=== PATIENT | male | born 2000 | race Hispanic/Latino ===

== ENCOUNTER 2019-09-08 20:37 | Emergency (ER) | payer OTHER, MEDICAID, SELFPAY ==
[2019-09-08 20:48] VITALS: PULSE 118; RESP 26; TEMP 39.5; O2SAT 98; BMI 29.1
[2019-09-08 21:12] VITALS: TEMP 39.5
[2019-09-08] MEDS: ACETAMINOPHEN 325 MG TABLET 650 MG PO (21:12)
--- NOTE | 2019-09-08 21:16 | ED.FEVER ---
HPI - Fever General Chief Complaint: Fever Stated Complaint: Fever, Headache, Nausea Time Seen by Provider: 09/08/19 20:59 Source: patient Mode of arrival: Ambulatory Limitations: no limitations History of Present Illness HPI Narrative: The patient reports fever and headache, onset yesterday. With the symptoms he denies sore throat or sinus pressure. He does have a mild, nonproductive cough. He complains of no abdominal pain. He has have frequent emesis, for about 6 months. Emesis is not increased with the symptoms that started last night. There is a colleague that he works with who was recently diagnosed with influenza, with similar symptoms. He has no chronic respiratory issues, no asthma or allergies. He does not smoke tobacco, he does smoke marijuana. Discussing the emesis, he says he does not smoke that much marijuana. He denies ear discomfort, sinus pressure, or sore throat. He has no difficulty swelling. He denies difficulty breathing with the cough. He denies abdominal pain. Related Data Previous Rx's Medication Instructions Recorded ondansetron 4 mg PO Q4H PRN #10 tab 09/08/19 Allergies Allergy/AdvReac Type Severity Reaction Status Date / Time No Known Drug Allergies Allergy Verified 09/08/19 20:53 Review of Systems Review of Systems ROS Unobtainable: All systems reviewed & are unremarkable except as noted in HPI and below Constitutional Constitutional: Denies chills, Reports fever(s), Reports headache(s), Denies lethargy and Denies weakness Eyes Eyes: Denies change in vision, Denies eye discharge and Denies irritation ENT Ears, Nose, Mouth, and Throat: Denies change in voice, Denies otalgia, Reports headache(s), Denies neck pain and Denies sore throat Cardiovascular Cardiovascular: Denies chest pain, Denies palpitations and Denies dyspnea Respiratory Respiratory: Reports as per HPI, Reports cough, Denies dyspnea and Denies wheezing Gastrointestinal Gastrointestinal: Reports as per HPI, Denies abdominal pain and Reports vomiting Musculoskeletal Musculoskeletal: Denies back pain and Denies neck pain Integumentary/Breasts Skin/Breast: Denies pruritus, Denies erythema, Denies rash and Denies wounds Neurologic Neurologic: Reports headache(s) and Denies weakness Endocrine Endocrine: Denies palpitations Allergic/Immunologic Allergic/Immunologic: Denies wheezing Patient History Surgical History (Updated 09/08/19 @ 21:38 by Vinicio Burgess MD) No significant past surgical history (Acute) Social History Smoking Status: Never smoker Smoking Status: Never smoker alcohol intake frequency: 0-2 drinks per day Substance Use Type: marijuana Exam Initial Vital Signs Initial Vital Signs: Vital Signs Temperature 103.1 F H 09/08/19 20:48 Pulse Rate 118 H 09/08/19 20:48 Respiratory Rate 26 H 09/08/19 20:48 Pulse Oximetry 98 09/08/19 20:48 Const General: cooperative and well developed Nutritional Appearance: well nourished HENMT Head: normocephalic and atraumatic Ears: external ears normal and TM's normal bilaterally Nose: external nose normal and No nasal discharge Face and sinus: sinuses nontender, face symmetric and No dry mucous membranes Mouth: oral mucosae normal and moist mucous membranes Teeth and gingiva: dentition normal Throat: posterior oropharynx normal Eyes General: appearance normal, both eyes and all related structures Eyelids: eyelids normal Conjunctivae: conjunctivae normal Sclera: sclerae normal Pupils: PERRL EOM: EOM intact bilaterally Neck Neck: normal visual inspection, no meningeal signs, trachea midline and No lymphadenopathy Chest Chest: normal inspection of the chest Resp Effort & Inspection: normal respiratory effort, able to speak in complete sentences and no respiratory distress Auscultation: clear to auscultation bilaterally, no rales, no rhonchi and no wheezes Cardio Rate: regular rate Rhythm: regular rhythm Heart Sounds: no click, no gallops, no murmurs and no rubs Pulses: normal peripheral pulses GI Inspection: non-distended Palpation: soft, no hepatosplenomegaly, No guarding and No tender Auscultation: normal bowel sounds Back/Spine/Pelvis Back: No CVA tenderness Skin General: no rashes or lesions noted, No jaundice and No petechiae Neuro General: alert, oriented x3, gait normal and no focal motor deficits Speech: speech normal Course Course Course Narrative: The patient's influenza. He is discharged home with recommendation ibuprofen for headache and pain, Zofran for nausea. I recommend he not smoke marijuana to see if that improves the nausea. He should return to the ER if his situation worsens. Orders Ordered: ED Orders 09/08/19 20:54 Flu test [Influenza A & B (PCR)] Stat Discontinued Medications Acetaminophen (Tylenol) 650 mg PO NOW ONE Stop: 09/08/19 21:08 Last Admin: 09/08/19 21:12 Dose: 650 mg Documented by: KIMBRELY Vital Signs Vital signs: Vital Signs - 8 hr 09/08/19 20:48 09/08/19 21:12 Temperature 103.1 F H 103.1 F H Pulse Rate 118 H Respiratory Rate 26 H Pulse Oximetry 98 MDM - Fever Lab Data Labs: Lab Results 09/08/19 Range/Units 20:54 Influenza A (RT-PCR) Flu a positive H (NEGATIVE) Influenza B (RT-PCR) Flu b negative (NEGATIVE) Point of Care Testing Rapid Strep A Negative Discharge Plan Departure Patient Disposition: Home Clinical Impression: Influenza A Instructions: DI for Influenza -- Adult Activity Restrictions/Additional Instructions: Advil 3 tablets every 6 hours as needed for pain or fever. Zofran every 4 hours for nausea. Be sure you are drinking plenty of fluids and remain well hydrated. Return the ER as necessary. Prescriptions: New ondansetron 4 mg tablet,disintegrating 4 mg PO Q4H PRN (Reason: nausea and vomiting) Qty: 10 RF: 0 Stand Alone Forms: Work Release Note
[2019-09-08 21:25] LABS: Influenza A - CEPHEID Flu A POSITIVE (NEGATIVE); Influenza B - CEPHEID Flu B NEGATIVE (NEGATIVE)
[2019-09-08] MEDS: ONDANSETRON 4 MG ODT PREPACK 1 BOTTLE MISC (21:37)
[2019-09-08 21:40] VITALS: TEMP 39.2
[2019-09-08 21:44] VITALS: BP 126/76; PULSE 107; RESP 18; TEMP 39.2; O2SAT 97
== END 2019-09-08 21:44 | disposition home or self-care (01) ==
PROVIDERS: Emergency Provider Emergency Medicine
DX: J10.1 Influenza due to other identified influenza virus with other respiratory manifestations (principal)
CPT/HCPCS: 87502; 87880; 99283

== ENCOUNTER 2021-06-27 08:54 | Emergency (ER) | payer OTHER, MEDICAID, SELFPAY ==
[2021-06-27 09:00] VITALS: BP 127/66; PULSE 73; RESP 18; TEMP 36; O2SAT 98; BMI 27.8
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
[2021-06-27] MEDS: diazePAM 5 MG TABLET PO (11:22)
[2021-06-27] MEDS: KETOROLAC 30 MG/ML VIAL IM (11:22)
== END 2021-06-27 11:26 | disposition home or self-care (01) ==
PROVIDERS: Emergency Provider Emergency Medicine
DX: M54.50 Low back pain, unspecified (principal); M54.6 Pain in thoracic spine
CPT/HCPCS: 96372; 99283; J1885

== ENCOUNTER 2023-07-16 10:33 | Emergency (ER) | payer SELFPAY ==
[2023-07-16 10:53] VITALS: BP 107/67; PULSE 90; RESP 14; TEMP 36.5; O2SAT 97; BMI 27.4
--- NOTE | 2023-07-16 11:29 | ED_ITS ---
HPI - Skin/Abscess/Foreign Bdy <VIKKI Watkins - Last Filed: 07/16/23 11:38> General Chief complaint: Skin/Abscess/Foreign Body Stated complaint: sores on feet and hands Time Seen by Provider: 07/16/23 11:08 Source: patient Mode of arrival: Ambulatory Limitations: no limitations History of Present Illness HPI narrative: 22-year-old male, daily smoker, presents to the emergency department with complaints of nonhealing sores on his right foot dorsum. Patient believes he cut his foot while wearing sandals and appears to be getting worse. Daily cleaning has included isopropyl alcohol and antibiotic ointment. Related Data Previous Rx's Medication Instructions Recorded ondansetron 4 mg disintegrating 4 mg PO Q4H PRN nausea and 09/08/19 tablet vomiting #10 tabs diazepam 10 mg tablet (Valium) 10 mg PO TID PRN muscle spasm #10 06/27/21 tabs sulfamethoxazole 400 1 tab PO BID Cellulitis 10 days 07/16/23 mg-trimethoprim 80 mg tablet #20 tabs (Bactrim) Allergies Allergy/AdvReac Type Severity Reaction Status Date / Time No Known Drug Allergies Allergy Verified 07/16/23 10:53 Review of Systems <VIKKI Watkins - Last Filed: 07/16/23 11:38> Review of Systems Narrative: Narrative: See HPI. GENERAL: Denies chills, fatigue, fever, sweats. HEENT: Denies sinus pain, ear pain, sore throat, difficulty swallowing, dizziness. RESPIRATORY: Denies dyspnea, cough, wheezing, sputum. CARDIOVASCULAR: Denies chest pain, palpitations, edema. GASTROINTESTINAL: Denies nausea, vomiting, abdominal pain, diarrhea, constipation. : Denies dysuria, frequency, incontinence, hematuria, urinary retention, flank pain. MSK: Denies weakness, joint pain, or bony pain. SKIN: Denies rash, or pruritis. Endorses lesions on right foot. NEUROLOGIC: Denies weakness, dizziness, headache, numbness, confusion. Patient History <VIKKI Watkins - Last Filed: 07/16/23 11:38> Surgical History No significant past surgical history Social History Smoking Status: Current every day smoker Smoking Status: Current every day smoker alcohol intake frequency: holidays/special occasions only Substance Use Type: does not use and marijuana Exam <VIKKI Watkins - Last Filed: 07/16/23 11:38> Narrative Exam Narrative: Exam Narrative: GENERAL: This is a well-nourished, well-developed patient, in no acute distress HEAD: Atraumatic. Normocephalic. ENT: Nose without bleeding, purulent drainage. Airway patent. RESPIRATORY: Respiratory rate and effort are normal. MSK: Moves all extremities. Normal range of motion, no clubbing or edema. Neurovascularly intact. NEURO: A&O x 3. SKIN: Warm, dry, no rashes noted. Three nonhealing lesions on right foot dorsum. Moderate redness and warmth with no fluctuance, drainage or red streaking noted. Initial Vital Signs Initial Vital Signs: Vital Signs Temperature 97.7 F 07/16/23 10:53 Pulse Rate 90 07/16/23 10:53 Respiratory Rate 14 07/16/23 10:53 Blood Pressure 107/67 07/16/23 10:53 Pulse Oximetry 97 07/16/23 10:53 Oxygen Delivery Method Room Air 07/16/23 10:53 Reviewed <Ramsey Machado MD - Last Filed: 07/17/23 18:18> Initial Vital Signs Initial Vital Signs: Vital Signs Temperature 97.7 F 07/16/23 10:53 Pulse Rate 90 07/16/23 10:53 Respiratory Rate 14 07/16/23 10:53 Blood Pressure 107/67 07/16/23 10:53 Pulse Oximetry 97 07/16/23 10:53 Oxygen Delivery Method Room Air 07/16/23 10:53 Course <VIKKI Watkins - Last Filed: 07/16/23 11:38> Vital Signs Vital signs: Vital Signs - 8 hr 07/16/23 10:53 Temperature 97.7 F Pulse Rate 90 Respiratory Rate 14 Blood Pressure 107/67 Pulse Oximetry 97 Oxygen Delivery Method Room Air <Ramsey Machado MD - Last Filed: 07/17/23 18:18> Vital Signs Vital signs: Vital Signs - 8 hr 07/16/23 10:53 Temperature 97.7 F Pulse Rate 90 Respiratory Rate 14 Blood Pressure 107/67 Pulse Oximetry 97 Oxygen Delivery Method Room Air MDM - Skin/Abscess/Foreign Bdy <VIKKI Watkins - Last Filed: 07/16/23 11:38> Differential Diagnosis Differential diagnosis: Likely abscess of skin or subcutaneous tissue and cellulitis [facility] Narrative Medical decision making narrative: 22-year-old male with lesions on right foot. Assessment was consistent with early cellulitis with concerns over possible staph infection. No drainage to culture. Will treat with Bactrim. Strict instructions to follow up in walk-in clinic if symptoms are not improving. Discussed plan of care and return precautions with patient, who verbalized understanding and was agreeable with course of action. <Ramsey Machado MD - Last Filed: 07/17/23 18:18> [facility] Narrative Medical decision making narrative: 22-year-old male with lesions on right foot. Assessment was consistent with early cellulitis with concerns over possible staph infection. No drainage to culture. Will treat with Bactrim. Strict instructions to follow up in walk-in clinic if symptoms are not improving. Discussed plan of care and return precautions with patient, who verbalized understanding and was agreeable with course of action. I was immediately available in the department for consultation. Documentation nunez s been reviewed. I agree with assessment and plan. Discharge Plan Departure Patient Disposition: Home Clinical Impression: Cellulitis Qualifiers: Site of cellulitis: extremity Site of cellulitis of extremity: lower extremity Laterality: right Qualified Code(s): L03.115 - Cellulitis of right lower limb Instructions: DI for Cellulitis -- Adult Activity Restrictions/Additional Instructions: *You have been diagnosed with cellulitis of your right foot. This may potentially be a staph infection and will therefore treat with antibiotics. As we discussed, cleaned the site with warm soap and water and dress daily with antibiotic ointment. If symptoms are not improving by the end of the week, please go to the walk-in clinic for re-evaluation. *What to do: *Please continue to take your regular medications as directed. [x ] New medication prescriptions sent to your pharmacy: [[facility] ] [ ] New medication written as a paper prescription [ ] No new medications given *Please follow up with your primary care provider in 2-3 days, call for an appointment. Let them know you were seen in the Emergency Department and that we ask that you be seen in follow up. We will electronically transmit a record of today's note if your PCP is in our system *If you do not have a primary care provider please contact the [facility] Resource line at [phone]. They will ask some questions about your medical history and help get you set up with a doctor in the community. ? Return to ER if you should have any new, worsening or concerning symptoms, such as worsening pain, severe headache, confusion, chest pain, difficulty breathing, fever greater than 101 F, shaking chills, persistent vomiting to the point that you cannot drink fluids, or other new or worsening symptoms. Prescriptions: New sulfamethoxazole-trimethoprim [Bactrim] 400-80 mg tablet 1 tab PO BID 10 Days Qty: 20 0RF No Action diazepam [Valium] 10 mg tablet 10 mg PO TID PRN (Reason: muscle spasm) Qty: 10 0RF ondansetron 4 mg tablet,disintegrating 4 mg PO Q4H PRN (Reason: nausea and vomiting) Qty: 10 0RF Stand Alone Forms: Patient Portal/API
[2023-07-16 11:52] VITALS: BP 110/64; PULSE 87; RESP 12; O2SAT 97
== END 2023-07-16 11:54 | disposition home or self-care (01) ==
PROVIDERS: Emergency Provider Registered Nurse
DX: L03.115 Cellulitis of right lower limb (principal)
CPT/HCPCS: 99281; 99283

== ENCOUNTER → 2025-04-01 11:24 | Outpatient (CLI) | payer OTHER, SELFPAY ==
[2025-04-01 12:08] LABS: Add Manual Diff / Slide Review NO; Hematocrit 43.1 % (41-53); Hemoglobin 15.2 g/dL (13.5-17.5); Lymphocytes Absolute Auto 1300 /uL (1100-4500); Mean Corpuscular HGB Conc 35.2 % (30-36); Mean Corpuscular Hemoglobin 30.0 PG (26-34); Mean Corpuscular Volume 85.3 fL (80-100); Platelet Count 308 X10^3/uL (150-400)
[2025-04-01 12:15] LABS: Hemoglobin A1C% w Est Avg Glu 5.4 % (4.0-6.0)
[2025-04-01 12:28] LABS: Alanine Aminotransferase 27 IU/L (<50); Albumin 5.1 g/dL (3.5-5.0); Albumin Globulin Ratio 1.3 (1.0-2.8); Alkaline Phosphatase 86 U/L (38-126); Blood Urea Nitrogen 9 mg/dL (9-20); Calcium 9.5 mg/dL (8.4-10.2); Carbon Dioxide 26 mmol/L (22-32); Chloride 102 mmol/L (98-107); Estimated Glomerular Filt Rate > 60 mL/min (>60); Globulin 3.9 g/dL (1.7-4.1); Glucose 97 mg/dL (70-99); HEMOLYSIS < 15 (0-50); Potassium 4.2 mmol/L (3.4-5.1); Sodium 139 mmol/L (137-145); Total Protein 9.0 g/dL (6.3-8.2)
[2025-04-02 13:11] LABS: Interpretation Positive (Negative)
== END ==
PROVIDERS: Referring Provider Physician Assistant; Visit Provider Physician Assistant
DX: R10.9 Unspecified abdominal pain (principal); G89.29 Other chronic pain; Z80.0 Family history of malignant neoplasm of digestive organs; Z86.19 Personal history of other infectious and parasitic diseases
CPT/HCPCS: 36415; 80053; 83013; 83036; 85025